=== PATIENT | male | born 1965 | race Caucasian/White ===

== ENCOUNTER → 2023-12-07 10:04 | Day surgery (SDC) | payer BC, OTHER, SELFPAY ==
--- NOTE | 2023-12-07 12:13 | ITS.CL.IMPLP ---
Composition Floor Layer - Implant Loop
Implant Loop
Procedure Report:
Primary Physician: Daniel Fuentes MD
Primary Business Development Director: Daniel Dhaliwal MD
Procedure Date: 12/07/2023
Procedure: Placement of a loop recorder.
History/Indication:
1. See office H&P for complete history.
2. Patient is a 58-year-old male with a past medical history significant for hypertension, hypercholesterolemia, palpitations, and TIA. Undergoing ILR insertion for arrhythmia surveillance in the setting of TIA.
Method:
After informed consent was obtained, the patient was brought to the EP laboratory holding area in a fasting, non-sedated state. Peripheral access was established. The left chest was prepared and draped in a sterile fashion. A 'time out' was
called. Local anesthesia was injected in the subcutaneous tissue. The ILR was injected under the skin. Topical skin adhesive was applied. Following the procedure, the patient was taken to the recovery area in stable condition. No complications
were noted.
Device Data:
[employer]; Model# [id number]; Serial# [id number]
Conclusion:
Successful placement of a loop recorder.
Recommendations:
1. Follow-up will be arranged in the [facility] in 7-10 days for wound check.
2. Routine ILR care.
Everette Multani DO
Clinical Cardiac Fish Rod Maker
cc: Daniel Fuentes MD, Daniel Dhaliwal MD
== END | disposition home or self-care (01) ==
LOC: CATH 10:04
PROVIDERS: ATTENDING PHYSICIAN Internal Medicine Cardiovascular Disease; FAMILY PHYSICIAN Family Medicine; OTHER PHYSICIAN Internal Medicine Cardiovascular Disease
DX: Z09 Encounter for follow-up examination after completed treatment for conditions other than malignant neoplasm (principal); Z86.73 Personal history of transient ischemic attack (TIA), and cerebral infarction without residual deficits; R00.2 Palpitations; I10 Essential (primary) hypertension; E78.00 Pure hypercholesterolemia, unspecified; Z79.82 Long term (current) use of aspirin
CPT/HCPCS: 33285; C1764

== ENCOUNTER 2025-01-02 01:03 | Emergency (ER) | payer OTHER, SELFPAY ==
[2025-01-02] VITALS (7 sets, daily range): BP systolic 123–172; BP diastolic 68–87; BMI 26.0
--- NOTE | 2025-01-02 03:40 | ED.GENMED ---
History of Present Illness
<Joslyn Castellon DO - Last Filed: 01/02/25 04:16>
General
Chief Complaint: Blood Pressure Problem
Time Seen by Provider: 01/02/25 03:19
<BERNADINE Guajardo - Last Filed: 01/02/25 05:42>
History of Present Illness
History of Present Illness:
59 y/o male pt with a PMH of HTN, hypercholestrolemia, TIA- loop recorder placement november 2023 presenting to ED c/o palpitations and high blood pressure as per home cuff readings. Pt stated he checked his bp 3 time and it was consistently above
190/90, pulse varied from 88 to 127. Pt states this has happened to him a few times in the past and believes it is associated with foods high in salt, tonight he had tajik. Pt denies any chest pain, SOB, tightness, denies shoulder pain, back pain,
pedal edema, admits to recently experiencing polyuria and polydipsia. States his HTN and palpitation symptoms have now resolved.
Past History
<BERNADINE Guajardo - Last Filed: 01/02/25 05:42>
Past History
ED Past Medical History: GERD
ED Past Surgical History: Orthopedic
Social History
Tobacco: Non-smoker
Alcohol: None
Family History
Family History: Hypertension and CAD
Review of Systems
<BERNADINE Guajardo - Last Filed: 01/02/25 05:42>
Review of Systems
Constitutional: Reports no symptoms
EENT: Reports no symptoms
Respiratory: Reports no symptoms
Cardiac: Reports palpitations
ABD/GI: Reports no symptoms
: Reports frequency (polyuria)
Musculoskeletal: Reports no symptoms
Skin: Reports no symptoms
Phy Exam
<BERNADINE Guajardo - Last Filed: 01/02/25 05:42>
General Physical Exam
General Presentation: well appearing and no apparent distress
General age: appears stated age
General Skin: warm
General Habitus: normal
General Mental: alert
General Hydration: appears well hydrated
Cardiovascular Exam
Cardiovascular Exam: regular rate/rhythm, no edema, no gallop, no JVD, no murmur and normal peripheral pulses
Heart Sounds: normal
Pulmonary Exam
Pulmonary Exam: lungs clear, no respiratory distress, chest non tender and no cough
Cough: no cough
Gastrointestinal Exam
Gastrointestinal Exam: normal bowel sounds, non tender, soft, no pulsatile mass and non distended
Course
<Joslyn Castellon DO - Last Filed: 01/02/25 04:16>
Orders/Labs/Results
Orders:
Orders
01/02/25 03:18
EKG [Electrocardiogram (*1)] Urgent
Reason for Study: Palpitations
01/02/25 04:02
Bedside Glucose Monitoring-ONCE As Directed
Abnormal Lab Results
01/02/25
04:20
POC Glucose 103 H mg/dl
(70-99)
Vital Signs
Initial and Last Documented VS:
Initial Vital Signs
Temp Pulse Resp BP Pulse Ox
98.1 F 80 24 172/76 98
01/02/25 01:07 01/02/25 01:07 01/02/25 01:07 01/02/25 01:07 01/02/25 01:07
Last Documented Vital Signs
Temp Pulse Resp BP Pulse Ox
98.1 F 63 16 145/73 96
01/02/25 01:07 01/02/25 04:28 01/02/25 04:28 01/02/25 04:28 01/02/25 04:28
<BERNADINE Guajardo - Last Filed: 01/02/25 05:42>
Orders/Labs/Results
Orders:
Orders
01/02/25 03:18
EKG [Electrocardiogram (*1)] Urgent
Reason for Study: Palpitations
01/02/25 04:02
Bedside Glucose Monitoring-ONCE As Directed
Abnormal Lab Results
01/02/25
04:20
POC Glucose 103 H mg/dl
(70-99)
Vital Signs
Initial and Last Documented VS:
Initial Vital Signs
Temp Pulse Resp BP Pulse Ox
98.1 F 80 24 172/76 98
01/02/25 01:07 01/02/25 01:07 01/02/25 01:07 01/02/25 01:07 01/02/25 01:07
Last Documented Vital Signs
Temp Pulse Resp BP Pulse Ox
98.1 F 63 16 145/73 96
01/02/25 01:07 01/02/25 04:28 01/02/25 04:28 01/02/25 04:28 01/02/25 04:28
<BERNADINE Guajardo - Last Filed: 01/02/25 05:42>
*Critical Care Note
Total Time (30-74mins, 75-104mins- exclusive of procedures): Not Applicable
ED Attending Note
<Joslyn Castellon DO - Last Filed: 01/02/25 04:16>
ED Attending Note
Patient seen and examined by attending physician: Yes
I performed the substantive portion of visit, reviewed & personally made and approve the management plan that is documented in note by myself or RADHA.: Yes
ED Attending Note:
This is a 59-year-old gentleman with history of hypertension, hyperlipidemia, asthma, GERD. History of intermittent palpitations for which he follows with Dr. Daniel Dhaliwal and has a loop recorder in place. No prior history of arrhythmia.
He admits to consuming Kisw[place]ili food tonight and this evening he developed some palpitations feeling that his heart was beating rapidly and somewhat hard. He checked his blood pressure and was concerned when his blood pressure was 180 and then upon
recheck elevated to 190 and noted that his heart rate was elevated at 120-127. He became concerned and presented to the ED.
He denies chest pain, no cough no shortness of breath.
He has had unremarkable nuclear stress tests, echocardiograms in the past.
Feeling improved since arrival to the ED.
Admits to similar palpitations and elevated blood pressure after consumption of high sodium foods such as pizza etc.
GENERAL: 59-year-old gentleman appears his stated age, awake and alert, mildly anxious but easily communicative and overall in no acute distress.
EYE: . anicteric
NECK: Supple, nontender, no meningismus, no significant adenopathy.
ENT: oral mucosa is moist. No rhinorrhea.
CARDIAC: Regular rate and rhythm. no murmur.
LUNGS: Clear breath sounds bilaterally, no acute respiratory distress, no wheezes/rales/rhonchi
ABDOMEN: Soft, nondistended, without focal tenderness
NEUROLOGICAL: Alert and oriented x3, no focal neuro deficits. Gait is tian and steady.
SKIN: Warm and dry, normal color, skin intact. No rash.
MUSCULOSKELETAL: No C/C/E. peripheral pulses are full and equal b/l. No palpable tenderness.
PSYCH: Mildly anxious. Easily communicative.
Patient presents with palpitations, hypertension. BP has normalized since arrival to the ED.
Monitor shows normal sinus rhythm without ectopy.
Loop recorder interrogated. No arrhythmia identified. Ventricular heart rate reported within normal limits throughout life of loop recorder.
EKG shows normal sinus rhythm, normal axis, normal intervals. No acute ST-T wave abnormalities. Similar and unchanged from previous.
Patient admits to similar palpitations and elevated blood pressure coinciding with ingestion of high sodium foods such as tonight. I suspect consumption of Kisw[place]ili food is cause for his palpitations.
He continues to deny chest pain.
EKG is similar and unchanged.
At this point no indication for laboratory studies.
Encouraged he avoid high sodium foods.
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
<BERNADINE Guajardo - Last Filed: 01/02/25 05:42>
-
Portions of this chart may have been created with voice recognition software.� Occasional wrong word or��sound alike� substitutions may have occurred due to the inherent limitations of voice recognition software.
Discharge Plan
Departure
Patient Disposition: Home (Routine Discharge)
Date of Disposition: 01/02/25
Time of Disposition: 04:13
Patient with high blood pressure during this ER visit?: No
Condition: Good
Discharge Problem:
Heart palpitations
Instructions: Low-sodium diet, Palpitations
Prescriptions:
No Action
pravastatin 40 mg Tablet
40 mg PO HS
cyanocobalamin (vitamin B-12) [Vitamin B-12] 1,000 mcg Tablet
1,000 mcg PO DAILY
amlodipine 5 mg Tablet
5 mg PO DAILY
omeprazole 40 mg Capsule,Delayed Release(Dr/Ec)
40 mg PO DAILY
aspirin 81 mg Tablet,Chewable
81 mg PO DAILY
metoprolol succinate 25 mg Tablet Extended Release 24 Hr
25 mg PO BID
finasteride 1 mg Tablet
1 mg PO DAILY
Dulera 200-5 mcg/actuation Hfa Aerosol Inhaler
2 puff INHALATION BID
Hair Hero
1 tab PO HS
Referrals:
Daniel Fuentes MD [Family Provider] -
Daniel Dhaliwal MD [Active] - Call in 1-3 days for appt
Interventions
Interventions:
*Risk Screen - Suicide Last Done: 01/02/25 01:07
*General Assessment Last Done: 01/02/25 01:41
*Neglect/Abuse Screening Last Done: 01/02/25 01:07
*ED- Fall Risk Assessment Last Done: 01/02/25 01:41
*ED COVID-19 Vaccine History Last Done: 01/02/25 01:41
*Nursing Disposition Last Done: 01/02/25 04:30
ED- Cardiac Assessment Last Done: 01/02/25 01:41
ED- Neurological Assessment Last Done: 01/02/25 01:41
ED- Pulmonary Assessment Last Done: 01/02/25 01:41
Discharge Date and Time
Discharge Date/Time: 01/02/25 04:30
Print Language: [id number]
[2025-01-02 04:22] LABS: Glucose - Point of Care 103 mg/dl (70-99)
== END 2025-01-02 04:30 | disposition home or self-care (01) ==
LOC: EMR 01:03
PROVIDERS: EMERGENCY PHYSICIAN Emergency Medicine; FAMILY PHYSICIAN Family Medicine
DX: R00.2 Palpitations (principal); I10 Essential (primary) hypertension; E78.00 Pure hypercholesterolemia, unspecified; J45.909 Unspecified asthma, uncomplicated; K21.9 Gastro-esophageal reflux disease without esophagitis; Z86.73 Personal history of transient ischemic attack (TIA), and cerebral infarction without residual deficits
CPT/HCPCS: 99284; 82962; 93005

== ENCOUNTER → 2025-05-08 08:12 | Outpatient (REF) | payer OTHER, SELFPAY ==
[2025-05-08 10:10] LABS: ALT (SGPT) 25 U/L (0-50); AST (SGOT) 25 U/L (17-59); Albumin 4.4 g/dl (3.5-5.0); Alkaline Phosphatase 72 U/L (38-126); Blood Urea Nitrogen 17 mg/dl (9-20); Calcium 9.5 mg/dl (8.4-10.2); Carbon Dioxide 23 mmol/L (22-30); Chloride 109 mmol/L (98-107); Glucose 91 mg/dl (70-99); HDL Cholesterol 57 mg/dl; LDL Cholesterol, Calculated 65 mg/dl; Potassium 5.1 mmol/L (3.5-5.1); Sodium 140 mmol/L (135-145); Total Protein 7.1 g/dl (6.3-8.2); Very Low Density Lipoprotein 19 mg/dl (0-30); eGFR > 60.00
== END ==
LOC: RCS 08:12
PROVIDERS: ATTENDING PHYSICIAN Internal Medicine Cardiovascular Disease; FAMILY PHYSICIAN Family Medicine
DX: R07.9 Chest pain, unspecified (principal); I10 Essential (primary) hypertension; E78.00 Pure hypercholesterolemia, unspecified
CPT/HCPCS: 36415; 80053; 80061; 93017